=== PATIENT | male | born 1960 | race Hispanic/Latino ===

== ENCOUNTER → 2018-03-12 | Outpatient (CLI) | payer BC ==
--- NOTE | 2018-03-13 06:59 | Diagnostic Imaging Report ---
EXAMINATION: MRI of the lumbar spine without contrast HISTORY: Low back pain for 15 months COMPARISON: None. TECHNIQUE: Sagittal T1, T2, STIR; axial T2 and proton density. FINDINGS: It is assumed that there are 5 lumbar vertebrae. Curvature/Alignment: Normal lordosis. Minimal retrolisthesis at L1-L2 and anterolisthesis of L4-5. Vertebrae: No evidence of recent fracture, infection, or neoplasm. Conus: Normal, terminating at T12-L1 Cauda equina: Unremarkable. Lower thoracic: Unremarkable. Paraspinal soft tissues: Partially visualized T2 hyperintense probable cysts in the left kidney. Degenerative changes: L1-L2: Mild symmetric bulge. No significant stenosis. L2-L3: Unremarkable. L3-L4: Unremarkable. L4-L5: Mild symmetric bulge, prominent facet arthrosis. Minimal anterolisthesis. No canal or foramina. Minimal facet joint effusion, bone marrow edema, periarticular swelling mainly on the left side, related to synovitis. L5-S1: Minimal symmetric disc bulge and facet arthrosis without stenosis. Incidental findings: Small benign arachnoid/Tarlov's cyst or on the right side at S1-S2. IMPRESSION: 1. Minimal degenerative spondylolisthesis L4-5. 2. 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 3. Mild multilevel degenerative changes without significant spinal canal or foraminal stenosis. Signed by: Dr. Bella Wright M.D. on 03/13/2018 6:56 AM
== END ==
LOC: MRI 16:40
PROVIDERS: ATTEND Specialist
DX: M54.5 Low back pain (principal)
CPT/HCPCS: 72148